=== PATIENT | female | born 1985 | race Caucasian/White ===

== ENCOUNTER → 2017-02-16 | Outpatient (REF) | payer BC | LOC: M SFHCPLAZ 15:49 | PROVIDERS: ATTEND Nurse Practitioner Family | DX: J02.9 Acute pharyngitis, unspecified (principal) ==

== ENCOUNTER → 2017-04-19 | Outpatient (REF) | payer BC ==
[2017-04-19 18:16] LABS: ANION GAP 6 MEQ/L (8-16); BLOOD UREA NITROGEN 12 MG/DL (7-18); CALCIUM LEVEL 8.7 MG/DL (8.5-10.1); CARBON DIOXIDE LEVEL 32 MEQ/L (21-32); CHLORIDE LEVEL 104 MEQ/L (98-107); CREATININE FOR GFR 0.73 MG/DL (0.55-1.02); GLOMERULAR FILTRATION RATE > 60.0 (>60); GLUCOSE, FASTING 65 MG/DL (70-105); POTASSIUM SERUM 4.1 MEQ/L (3.5-5.1); SODIUM LEVEL 142 MEQ/L (136-145)
[2017-04-19 18:49] LABS: MEAN CORPUSCULAR HEMOGLOBIN 30.2 pg (27.0-33.0); MEAN CORPUSCULAR VOLUME 91.4 fl (80.0-96.0); RED CELL DISTRIBUTION WIDTH 11.4 % (11.5-14.5); WHITE BLOOD COUNT 6.8 10^3/uL (4.0-10.0)
== END ==
LOC: M SFHCPLAZ 15:30
PROVIDERS: ATTEND Nurse Practitioner Family
DX: R30.0 Dysuria (principal)

== ENCOUNTER → 2017-04-19 | Outpatient (REF) | payer BC | LOC: M SFHCPLAZ 15:36 | PROVIDERS: ATTEND Nurse Practitioner Family | DX: R30.0 Dysuria (principal) ==

== ENCOUNTER → 2017-04-24 | Outpatient (REF) | payer BC | LOC: M SFHCWAGY 14:54 | PROVIDERS: ATTEND Nurse Practitioner Family | DX: Z12.4 Encounter for screening for malignant neoplasm of cervix (principal) ==

== ENCOUNTER → 2018-03-29 | Outpatient (REF) | payer BC ==
[2018-03-29 12:26] LABS: HEMATOCRIT 41.3 % (36.0-47.0); MEAN CORPUSCULAR HEMOGLOBIN 30.6 pg (27.0-33.0); MEAN CORPUSCULAR HGB CONC 33.9 g/dl (32.0-36.5); MEAN CORPUSCULAR VOLUME 90.4 fl (80.0-96.0); PLATELET COUNT, AUTOMATED 292 10^3/uL (150-450); RED BLOOD COUNT 4.57 10^6/uL (4.00-5.40); RED CELL DISTRIBUTION WIDTH 11.4 % (11.5-14.5); WHITE BLOOD COUNT 6.9 10^3/uL (4.0-10.0)
[2018-03-29 13:00] LABS: TOTAL 25(OH) VITAMIN D 30.6 NG/ML (30.0-100.0)
[2018-03-29 13:35] LABS: ALBUMIN/GLOBULIN RATIO 1.11 (1.00-1.93); ALKALINE PHOSPHATASE 63 U/L (45-117); ALT/SGPT 31 U/L (12-78); ANION GAP 11 MEQ/L (8-16); AST/SGOT 25 U/L (7-37); BILIRUBIN,TOTAL 0.5 MG/DL (0.2-1.0); BLOOD UREA NITROGEN 17 MG/DL (7-18); CALCIUM LEVEL 8.9 MG/DL (8.5-10.1); CARBON DIOXIDE LEVEL 26 MEQ/L (21-32); CHLORIDE LEVEL 102 MEQ/L (98-107); CREATININE FOR GFR 0.81 MG/DL (0.55-1.30); FREE T4 1.07 NG/DL (0.76-1.46); GLOMERULAR FILTRATION RATE > 60.0 (>60); GLUCOSE, FASTING 82 MG/DL (70-100); POTASSIUM SERUM 4.1 MEQ/L (3.5-5.1); SODIUM LEVEL 139 MEQ/L (136-145); TOTAL PROTEIN 7.6 GM/DL (6.4-8.2)
== END ==
LOC: M SFHCPLAZ 10:18
DX: F33.1 Major depressive disorder, recurrent, moderate (principal)
CPT/HCPCS: 84443

== ENCOUNTER 2018-08-21 16:00 | Outpatient (RCR) | payer BC | END 2018-08-22 | LOC: M PT 16:00 | PROVIDERS: ATTEND Nurse Practitioner Family | DX: M54.2 Cervicalgia (principal) ==

== ENCOUNTER → 2019-02-26 | Outpatient (CLI) | payer BC ==
[2019-02-26 10:43] LABS: FREE T4 1.03 NG/DL (0.76-1.46); THYROID STIMULATING HORMONE 1.88 uIU/ML (0.358-3.740)
[2019-02-26 10:49] LABS: TOTAL 25(OH) VITAMIN D 21.9 NG/ML (30.0-100.0)
== END ==
LOC: M LAB 09:16
PROVIDERS: ATTEND Nurse Practitioner Family
DX: F33.1 Major depressive disorder, recurrent, moderate (principal); E55.9 Vitamin D deficiency, unspecified

== ENCOUNTER → 2019-04-25 | Outpatient (CLI) | payer BC ==
[2019-04-25 08:12] LABS: BASO # 0.1 10^3/uL (0.0-0.2); BASO % 0.9 % (0.0-1.0); EOS # 0.2 10^3/uL (0.0-0.5); EOS % 2.1 % (0.0-3.0); HEMATOCRIT 43.6 % (36.0-47.0); HEMOGLOBIN 14.8 g/dl (12.0-15.5); LYMPH # 2.7 10^3/uL (1.5-5.0); LYMPH % 29.1 % (24.0-44.0); MEAN CORPUSCULAR HEMOGLOBIN 30.1 pg (27.0-33.0); MEAN CORPUSCULAR HGB CONC 33.9 g/dl (32.0-36.5); MEAN CORPUSCULAR VOLUME 88.6 fl (80.0-96.0); MONO # 0.9 10^3/uL (0.0-0.8); MONO % 10.3 % (0.0-5.0); NEUTROPHILS # 5.2 10^3/uL (1.5-8.5); NEUTROPHILS % 57.4 % (36.0-66.0); PLATELET COUNT, AUTOMATED 333 10^3/uL (150-450); RED BLOOD COUNT 4.92 10^6/uL (4.00-5.40); WHITE BLOOD COUNT 9.1 10^3/uL (4.0-10.0)
[2019-04-25 09:21] LABS: ALT/SGPT 39 U/L (12-78); BILIRUBIN,TOTAL 0.4 MG/DL (0.2-1.0); BLOOD UREA NITROGEN 14 MG/DL (7-18); CALCIUM LEVEL 9.1 MG/DL (8.5-10.1); CARBON DIOXIDE LEVEL 27 MEQ/L (21-32); CHLORIDE LEVEL 105 MEQ/L (98-107); CHOLESTEROL LEVEL 186 MG/DL (<200); CHOLESTEROL RISK RATIO 4.894 (<5); CREATININE FOR GFR 1.03 MG/DL (0.55-1.30); FERRITIN 171 NG/ML (8-252); GLOMERULAR FILTRATION RATE > 60.0 (>60); GLUCOSE, FASTING 96 MG/DL (70-100); HDL CHOLESTEROL 38 MG/DL (>40); LDL CHOLESTEROL 108 MG/DL (<100); NON-HDL-C 148 MG/DL; POTASSIUM SERUM 4.4 MEQ/L (3.5-5.1); SODIUM LEVEL 139 MEQ/L (136-145); TOTAL PROTEIN 7.6 GM/DL (6.4-8.2); TRIGLYCERIDES LEVEL 202 MG/DL (<150)
[2019-04-25 09:58] LABS: PTH INTACT 40.6 PG/ML (18.5-88.0)
[2019-04-25 09:59] LABS: VITAMIN B12 LEVEL 1083 PG/ML
[2019-04-25 10:00] LABS: FOLATE 14.5 NG/ML
== END ==
LOC: M LAB 04-24 15:36
PROVIDERS: ATTEND Nurse Practitioner Family
DX: R53.83 Other fatigue (principal); E66.9 Obesity, unspecified

== ENCOUNTER → 2019-10-20 | Outpatient (CLI) | payer BC ==
--- NOTE | 2019-10-21 15:31 | SLEEPCENT ---
DATE OF PROCEDURE: 10/20/2019 ORDERED BY: Mirian Person NP Nocturnal polysomnography was performed for evaluation of sleep physiology in this patient with a history of excessive somnolence, nonrestorative sleep and morning headaches, who has a comorbidity of prior cardiac surgery. 8 hours and 40 minutes of data were reviewed. There were 466.5 minutes of sleep identified. Sleep latency was prolonged at 34.5 minutes. Rapid eye movement (REM) latency was prolonged 152.5 minutes. Sleep architecture was good with four REM cycles. Overall sleep efficiency 90.8%. The patient's electrocardiogram showed a sinus rhythm with an average heart rate of 72 beats per minute. Rate ranged 60-85. Electroencephalogram (EEG) showed normal waveforms for awake and sleep. There were 74 respiratory events identified of 10 seconds in duration or greater for an apnea-hypopnea index of 9.5. The events were obstructive not exclusive to sleep stage though REM clustering was noted. They were more frequent but not exclusive to the spine posture. Arousals from respiratory events occurred 1.8 times per hour and oxygen desaturations were seen into the 80s. There was some activity in the limb electromyogram (EMG) leads. Limb movement arousal index was 4.8. IMPRESSION: Obstructive sleep apnea syndrome (G47.33). Apnea-hypopnea index 9.5. RECOMMENDATIONS: The patient should be encouraged to return to the sleep disorder center for pressure therapy. In the interim, alcohol and sedative avoidance should be practiced and caution exercised during operation of motor vehicles.
== END ==
LOC: M SLEEP 20:00
PROVIDERS: ATTEND Nurse Practitioner Adult Health
DX: G47.30 Sleep apnea, unspecified (principal)

== ENCOUNTER → 2019-12-22 | Outpatient (CLI) | payer BC ==
--- NOTE | 2019-12-29 11:16 | SLEEPCENT ---
DATE OF STUDY: 12/22/2019 ORDERED BY: Mirian Person Nocturnal polysomnography was performed for the titration of pressure therapy in this patient with obstructive sleep apnea syndrome and apnea-hypopnea index of 9.5. For testing, the patient was fit with a ResMed Air Fit F30 full face mask of small size, 4 cm of water pressure were applied to the circuit and the lights were extinguished. 7 hours and 14 minutes of data were reviewed. There were 381.5 minutes of sleep identified. Sleep latency was 38.5 minutes, mildly prolonged. REM latency was normal at 75 minutes. Sleep architecture was good with 3 REM cycles. Overall sleep efficiency was 89.2%. The electrocardiogram showed a sinus rhythm with an average heart rate of 70 beats per minute. PVCs were noted, particularly early in the study. Electroencephalogram (EEG) showed normal waveforms for awake and sleep. Respiratory events were fully palliated with C-PAP at a pressure of +6 and remaining measures of sleep physiology were normal. IMPRESSION: Obstructive sleep apnea syndrome (G47.33). RECOMMENDATION: Nightly use of pressure therapy at 6 cm of water.
== END ==
LOC: M SLEEP 20:00
PROVIDERS: ATTEND Nurse Practitioner Adult Health
DX: G47.33 Obstructive sleep apnea (adult) (pediatric) (principal)

== ENCOUNTER → 2020-09-07 | Outpatient (CLI) | payer SELFPAY | LOC: M LABSMTC 14:18 | PROVIDERS: ATTEND Pediatrics | DX: Z20.822 Contact with and (suspected) exposure to COVID-19 (principal) ==

== ENCOUNTER → 2020-09-19 | Outpatient (CLI) | payer SELFPAY | LOC: M LABSMTC 11:40 | PROVIDERS: ATTEND Pediatrics | DX: Z11.52 Encounter for screening for COVID-19 (principal) ==

== ENCOUNTER → 2020-09-24 | Outpatient (REF) | LOC: M LABSMTC 13:15 | PROVIDERS: ATTEND Pediatrics | DX: Z11.52 Encounter for screening for COVID-19 (principal) ==